=== PATIENT | female | born 1975 | race Caucasian/White ===

== ENCOUNTER 2022-08-21 13:51 | Emergency (ER) | payer MEDICAID, SELFPAY ==
[2022-08-21 13:59] VITALS: BP 148/77; PULSE 96; RESP 18; TEMP 36.1; O2SAT 99
--- NOTE | 2022-08-21 14:46 | ED.GENADULT ---
HPI - General Adult General Chief complaint: Skin/Abscess/Foreign Body Stated complaint: Rash Source: patient Mode of arrival: ambulatory Limitations: no limitations History of Present Illness HPI narrative: Patient presents for evaluation of pruritic rash to bilateral upper extremities. Symptom onset approximately 1 week ago. She was exposed to poison melissa around that time. 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 She has been applying calamine lotion. No difficulty breathing or swelling. Son is being evaluated here for similar symptoms. Related Data Home Medications Medication Instructions Recorded Confirmed albuterol sulfate 2.5 mg/3 mL 2.5 mg inhalation Q4H PRN sob 08/21/22 08/21/22 (0.083 %) solution for nebulization albuterol sulfate 90 mcg/actuation 1 puff inhalation QID PRN sob 08/21/22 08/21/22 aerosol inhaler cyanocobalamin (vitamin B-12) 50 50 mcg PO DAILY 08/21/22 08/21/22 mcg tablet (Vitamin B-12) divalproex 500 mg tablet,delayed 500 mg PO Q12H 08/21/22 08/21/22 release (Depakote) vitamin B complex (B See Rx Instructions .Route .COMPLEX 08/21/22 08/21/22 Complex-Vitamin B12 tablet) Allergies Allergy/AdvReac Type Severity Reaction Status Date / Time No Known Allergies Allergy Verified 08/21/22 14:25 Review of Systems Review of Systems: CONSTITUTIONAL: Denies fever, chills, or sweats. EYES: Denies visual changes, redness, or discharge. ENT: Denies rhinorrhea, congestion, sore throat, or otalgia. CARDIOVASCULAR: Denies chest pain, palpitations, or edema. RESPIRATORY: Denies cough or dyspnea. GASTROINTESTINAL: Denies abdominal pain, nausea, vomiting, or diarrhea. GENITOURINARY: Denies dysuria or hematuria. SKIN: Reports pruritic rash to BUE. MUSCULOSKELETAL: Denies back pain, joint pain, or myalgia. NEUROLOGIC: Denies headache, numbness, dizziness, or weakness. PSYCHIATRIC: Denies anxiety or depression. [facility] Past Medical History Medical History No pertinent past medical history Surgical History Surgical History No pertinent past surgical history Family History Family History Mother Family history non-contributory Social History Social History Substance use: never Living arrangements: with family Gender identity (if verbalized by the patient): Female Sexual Orientation (if Verbalized by the Patient): Straight or Heterosexual Spiritual care concerns: No Exam Narrative: GENERAL: Well-appearing, well-nourished, and in no acute distress. HEAD: Normocephalic, atraumatic. EYES: PERRLA and EOMI. ENT: Nares clear, no rhinorrhea or epistaxis. Mucous membranes moist. Oropharynx without tonsillar hypertrophy exudate or other lesions. Bilateral TMs pearly caruso nonbulging NECK: Supple. No adenopathy or masses. No carotid bruits or JVD CHEST: Clear to auscultation. No respiratory distress. No wheezes rales or rhonchi HEART: Regular rate and rhythm. No murmur heard. Normal peripheral pulses. ABDOMEN: Soft, nontender, nondistended, normal active bowel sounds. EXTREMITIES: Normal range of motion. No edema. SKIN: There are clusters of erythematous vesicles and linear areas of erythema to BUE NEURO: No focal deficits. Alert and oriented x3. PSYCH: Normal mood and affect. Course Course Emergency Course: This is a 47-year-old female who presented for evaluation of pruritic rash consistent with poison melissa dermatitis. Will place on prednisone taper. Benadryl for itching. Calamine lotion should help. Advise outpatient follow-up with primary provider. Go to the ER for difficulty breathing or swelling. Patient in agreement with plan of care. Level of Care: Express Care Visit Vital Signs Vital signs: Vital Signs Temp
== END 2022-08-21 14:55 | disposition home or self-care (01) ==
PROVIDERS: Emergency Provider Nurse Practitioner
DX: L23.7 Allergic contact dermatitis due to plants, except food (principal)
CPT/HCPCS: 99213; G0463

== ENCOUNTER 2022-10-03 10:57 | Emergency (ER) | payer OTHER, SELFPAY ==
[2022-10-03 11:06] VITALS: BP 149/87; PULSE 99; RESP 18; TEMP 36.6; O2SAT 99
--- NOTE | 2022-10-03 11:16 | ED.ANIMALBIT ---
HPI - Animal Bite General Chief Complaint: Animal Bite Stated Complaint: Dog Scratch Left Arm History of Present Illness HPI narrative: Patient presents with a superficial scratch to her left upper arm from her dog. Slight bruising around the area no redness no drainage no concern for infection patient has been cleansing with peroxide and apply Neosporin to the area. Related Data Home Medications Medication Instructions Recorded Confirmed albuterol sulfate 2.5 mg/3 mL 2.5 mg inhalation Q4H PRN sob 08/21/22 10/03/22 (0.083 %) solution for nebulization albuterol sulfate 90 mcg/actuation 1 puff inhalation QID PRN sob 08/21/22 10/03/22 aerosol inhaler cyanocobalamin (vitamin B-12) 50 50 mcg PO DAILY 08/21/22 10/03/22 mcg tablet (Vitamin B-12) divalproex 500 mg tablet,delayed 500 mg PO Q12H 08/21/22 10/03/22 release (Depakote) vitamin B complex (B See Rx Instructions .Route .COMPLEX 08/21/22 10/03/22 Complex-Vitamin B12 tablet) Allergies Allergy/AdvReac Type Severity Reaction Status Date / Time No Known Allergies Allergy Verified 10/03/22 11:14 Review of Systems Review of Systems: CONSTITUTIONAL: Denies fever, chills, or sweats. EYES: Denies visual changes, redness, or discharge. ENT: Denies rhinorrhea, congestion, sore throat, or otalgia. CARDIOVASCULAR: Denies chest pain, palpitations, or edema. RESPIRATORY: Denies cough or dyspnea. GASTROINTESTINAL: Denies abdominal pain, nausea, vomiting, or diarrhea. GENITOURINARY: Denies dysuria or hematuria. SKIN: Denies rash or itching. MUSCULOSKELETAL: Denies back pain, joint pain, or myalgia. NEUROLOGIC: Denies headache, numbness, or weakness. PSYCHIATRIC: Denies anxiety or depression. COUNTS INCLUDE 234 BEDS AT THE [facility] Past Medical History Medical History (Updated 10/03/22 @ 11:20 by YELITZA Karimi) No pertinent past medical history Surgical History Surgical History No pertinent past surgical history Family History Family History Mother Family history non-contributory Social History Social History Substance use: never Living arrangements: with family Gender identity (if verbalized by the patient): Female Sexual Orientation (if Verbalized by the Patient): Straight or Heterosexual Spiritual care concerns: No Comments At time of signature, agree with nursing past medical, surgical, social and family history. There is no relevant family history pertinent to the presenting complaint Exam Narrative: GENERAL: Well-appearing, well-nourished, and in no acute distress. HEAD: Normocephalic, atraumatic. EYES: PERRLA and EOMI. ENT: Nares clear, no rhinorrhea or epistaxis. Mucous membranes moist. NECK: Supple. CHEST: Clear to auscultation. No respiratory distress. HEART: Regular rate and rhythm. No murmur heard. Normal peripheral pulses. ABDOMEN: Soft, nontender, nondistended, normal active bowel sounds. EXTREMITIES: Normal range of motion. No edema. SKIN: Warm, dry, no rash. Superficial scratch to left upper arm no concern for infection scratches from a dog patient's own dog. NEURO: No focal deficits. Alert and oriented x3. Lisa Coma Scale Eye Opening: Spontaneous 4 [place] Coma Scale Motor: Obeys Commands 6 [place] Coma Scale Verbal: Oriented 5 [place] Coma Scale Total 15 Course Course Level of Care: Express Care Visit Vital Signs Vital signs: Vital Signs Temperature 36.6 C 10/03/22 11:06 Pulse Rate 99 10/03/22 11:06 Respiratory Rate 18 10/03/22 11:06 Blood Pressure 149/87 H 10/03/22 11:06 Pulse Oximetry 99 10/03/22 11:06 Oxygen Delivery Room Air 10/03/22 11:06 Temperature 36.6 C 10/03/22 11:06 Pulse Rate 99 10/03/22 11:06 Respiratory Rate 18 10/03/22 11:06 Blood Pressure 149/87 H 10/03/22 11:06 Pulse Oximetry 99 10/03/22 1
== END 2022-10-03 11:28 | disposition home or self-care (01) ==
PROVIDERS: Emergency Provider Nurse Practitioner Family
DX: S40.812A Abrasion of left upper arm, initial encounter (principal); W45.8XXA Other foreign body or object entering through skin, initial encounter
CPT/HCPCS: 99213; G0463

== ENCOUNTER 2023-04-19 14:28 | Emergency (ER) | payer OTHER, SELFPAY ==
--- NOTE | ~2023-04-19 | XR_ITS ---
EXAMINATION: XR foot RT min 3V DATE: 04/19/2023 15:45 INDICATION: Right foot injury and swelling. TECHNIQUE: 4 views of right foot were obtained. COMPARISON: None. FINDINGS: Bone alignment is normal. There is an avulsion fracture of medial base of second metatarsal at the attachment of the Lisfranc ligament. The distal fracture fragment demonstrates 2 mm lateral d isplacement. There are nondisplaced fractures of the bases of the third and fourth metatarsals. There is mild osteoarthritis of first metatarsophalangeal joint. IMPRESSION: 1. Fractures of the bases of the second-fourth metatarsals. Reviewed, dictated and finalized at location E. RINARY PHARMACOLOGIST
--- NOTE | ~2023-04-19 | XR_ITS ---
EXAMINATION: XR knee LT min 4V DATE: 04/19/2023 15:45 INDICATION: Left knee injury and pain. TECHNIQUE: 6 views of left knee were obtained. COMPARISON: None. FINDINGS: Bone alignment is normal. No fracture. Joint spaces are well maintained. There is no knee j oint effusion. IMPRESSION: 1. Normal left knee. Reviewed, dictated and finalized at location E. TRICAL FITTER IMPRESSION: 1. Normal left knee.
[2023-04-19 14:45] VITALS: BP 189/79; PULSE 98; RESP 20; TEMP 36.7; O2SAT 99
--- NOTE | 2023-04-19 15:42 | ED.LOWEXIN ---
HPI - Extremity Injury (Lower) General Chief Complaint: Extremity Injury, Lower Stated Complaint: Right foot injury Time Seen by Provider: 04/19/23 15:32 Source: patient, RN notes reviewed and old records reviewed Mode of arrival: ambulatory (using cane placed in Wheelchair) Limitations: no limitations History of Present Illness HPI Narrative: 47 year old female presents to express care with injury to her right foot when she slipped in the mud when she went to get the mail last night. Patient reports that she slipped and hurt her right foot and laceration on her anterior left knee when she fell onto street. Patient reports that she has pain to the right foot with swelling and bruising noted and decreased mobility with inability to fully bear weight on right foot. Patient voices some tenderness to left knee anteriorly with V shaped laceration to her anterior knee. MD complaint: knee injury and foot injury Onset (ago): day(s) (last night) Injury: Left: knee and Right: foot Type of Injury: other (fall) Place: street/outdoors Severity scale (1-10): 7 Exacerbating factors: weight bearing Treatments prior to arrival: cold therapy and NSAIDS Related Data Home Medications Medication Instructions Recorded Confirmed albuterol sulfate 2.5 mg/3 mL 2.5 mg inhalation Q4H PRN sob 08/21/22 04/19/23 (0.083 %) solution for nebulization albuterol sulfate 90 mcg/actuation 1 puff inhalation QID PRN sob 08/21/22 04/19/23 aerosol inhaler cyanocobalamin (vitamin B-12) 50 50 mcg PO DAILY 08/21/22 04/19/23 mcg tablet (Vitamin B-12) divalproex 500 mg tablet,delayed 500 mg PO Q12H 08/21/22 04/19/23 release (Depakote) vitamin B complex (B See Rx Instructions .Route .COMPLEX 08/21/22 04/19/23 Complex-Vitamin B12 tablet) Allergies Allergy/AdvReac Type Severity Reaction Status Date / Time No Known Allergies Allergy Verified 04/19/23 15:57 Review of Systems Review of Systems: CONSTITUTIONAL: Denies fever, chills, or sweats. EYES: Denies visual changes, redness, or discharge. ENT: Denies rhinorrhea, congestion, sore throat, or otalgia. CARDIOVASCULAR: Denies chest pain, palpitations, or edema. RESPIRATORY: Denies cough or dyspnea. GASTROINTESTINAL: Denies abdominal pain, nausea, vomiting, or diarrhea. GENITOURINARY: Denies dysuria or hematuria. SKIN: Denies rash or itching.laceration to the anterior aspect of right knee, V shaped. MUSCULOSKELETAL: Denies back pain,positive for right foot pain bruising and swelling , or myalgia. NEUROLOGIC: Denies headache, numbness, or weakness. PSYCHIATRIC: Denies anxiety or depression. All systems reviewed & are unremarkable except as noted in HPI and below PMFSH Past Medical History Medical History (Updated 04/21/23 @ 07:32 by Naomy Byrnes NP) Asthma Seizures Surgical History Surgical History No pertinent past surgical history Family History Family History Mother Family history non-contributory Social History Social History (Updated 04/21/23 @ 07:11 by Naomy Byrnes NP) Smoking packs per day: 1 Smoking cigarettes per day: 20.0 Smoking status: Current every day smoker Tobacco type: cigarettes Alcohol intake: current Alcohol use details: rare Substance use: never Living arrangements: with family Gender identity (if verbalized by the patient): Female Sexual Orientation (if Verbalized by the Patient): Straight or Heterosexual Spiritual care concerns: No Comments At time of signature, agree with nursing past medical, surgical, social and family history. There is no relevant family history pertinent to the presenting complaint Exam Narrative: GENERAL: Well-appearing, well-nourished, and in some acute distress related to pain HEAD: Normocephalic, atraumatic. EYES: PERRLA and EOMI. ENT: Nares clear, no rhinorrhea or epistaxis. Mucous mem
== END 2023-04-19 17:20 | disposition home or self-care (01) ==
PROVIDERS: Emergency Provider Registered Nurse; PCP Family Medicine
DX: S92.321A Displaced fracture of second metatarsal bone, right foot, initial encounter for closed fracture (principal); S92.334A Nondisplaced fracture of third metatarsal bone, right foot, initial encounter for closed fracture; S92.344A Nondisplaced fracture of fourth metatarsal bone, right foot, initial encounter for closed fracture; W01.0XXA Fall on same level from slipping, tripping and stumbling without subsequent striking against object, initial encounter; S81.012A Laceration without foreign body, left knee, initial encounter; F17.210 Nicotine dependence, cigarettes, uncomplicated; J45.909 Unspecified asthma, uncomplicated; G40.909 Epilepsy, unspecified, not intractable, without status epilepticus
CPT/HCPCS: 12002; 29515; 73564; 73630; 99214; G0463

== ENCOUNTER 2023-04-25 12:42 | Outpatient (CLI) | payer OTHER, SELFPAY ==
--- NOTE | ~2023-04-25 | XR_ITS ---
EXAMINATION: XR foot RT min 3V DATE: 04/25/2023 12:54 INDICATION: Metacarpal fracture follow-up TECHNIQUE: Dorsoplantar, lateral, and 2 oblique views of the right foot were obtained. COMPARISON: 04/19/2023 FINDINGS: A posterior splint has been applied which obscures the previously described metatarsal base fractures. No change in alignment is identified. The joint spaces are normal. There is mild dorsal s oft tissue swelling of the foot. IMPRESSION: 1. Unchanged metatarsal base fractures. Splint applied. Reviewed, dictated and finalized at location B. ER ROOM SUPERVISOR
== END 2023-04-25 12:43 | disposition home or self-care (01) ==
LOC: ANHBWCIMG 12:44
PROVIDERS: PCP Family Medicine; Visit Provider Orthopaedic Surgery
DX: S92.301A Fracture of unspecified metatarsal bone(s), right foot, initial encounter for closed fracture (principal); X58.XXXA Exposure to other specified factors, initial encounter
CPT/HCPCS: 73630

== ENCOUNTER 2023-05-09 12:53 | Outpatient (CLI) | payer OTHER, SELFPAY ==
--- NOTE | ~2023-05-09 | XR_ITS ---
Right foot Technique: AP, oblique, and lateral views were obtained. Clinical History: Follow-up COMPARISON: 04/25/2023 Findings: Healing fractures of the bases of second, third, fourth metatarsals are present, with stabl e osseous alignment. Joint spaces are preserved without erosive or degenerative change. Soft tissues are unremarkable. Impression: Subacute, healing fractures of the bases the second, third, and fourth metatarsals. Reviewed, dictated and finalized at location M. Impression: Subacute, healing fractures of the bases the second, third, and fourth metatars als.
== END 2023-05-09 12:54 | disposition home or self-care (01) ==
LOC: ANHBWCIMG 12:54
PROVIDERS: PCP Family Medicine; Visit Provider Orthopaedic Surgery
DX: M79.671 Pain in right foot (principal)
CPT/HCPCS: 73630

== ENCOUNTER 2023-06-20 13:02 | Outpatient (CLI) | payer OTHER, SELFPAY ==
--- NOTE | ~2023-06-20 | XR_ITS ---
EXAMINATION: XR foot RT min 3V DATE: 06/20/2023 13:15 INDICATION: Right foot pain. TECHNIQUE: 4 views of right foot were obtained. COMPARISON: Right foot radiographs 05/09/2023 FINDINGS: There is a fracture of medial base of second metatarsal at the attachment of the Lisfranc l igament. There is sclerosis of the fracture margins. The distal fracture fragment demonstrates 2 mm l ateral displacement. There are healing nondisplaced fractures of the bases of the third-fifth metatar sals. Joint spaces are normal. IMPRESSION: 1. Ununited fracture of medial base of second metatarsal. 2. Healing fractures of the bases of the third-fifth metatarsals. Reviewed, dictated and finalized at location E.
== END 2023-06-20 13:03 | disposition home or self-care (01) ==
LOC: ANHBWCIMG 13:04
PROVIDERS: PCP Family Medicine; Visit Provider Orthopaedic Surgery
DX: S92.331D Displaced fracture of third metatarsal bone, right foot, subsequent encounter for fracture with routine healing (principal); S92.341D Displaced fracture of fourth metatarsal bone, right foot, subsequent encounter for fracture with routine healing; S92.351D Displaced fracture of fifth metatarsal bone, right foot, subsequent encounter for fracture with routine healing; S92.321K Displaced fracture of second metatarsal bone, right foot, subsequent encounter for fracture with nonunion; X58.XXXD Exposure to other specified factors, subsequent encounter
CPT/HCPCS: 73630

== ENCOUNTER 2023-07-18 12:23 | Outpatient (CLI) | payer OTHER, SELFPAY ==
--- NOTE | ~2023-07-18 | XR_ITS ---
XR foot RT min 3V DATE: 07/18/2023 12:34 INDICATION: Right foot pain TECHNIQUE: Standing 4 view examination COMPARISON: June 20, 2023 right foot April 19, 2023 right foot FINDINGS: Fractures lines of the bases of the second through fourth metatarsal bones are no longer ra diographically evident. No interval fracture or dislocation. No periosteal reaction or bone destruction. IMPRESSION: Advanced healing of second through fourth metatarsal base fractures Reviewed, dictated and finalized at location B.
== END 2023-07-18 12:24 | disposition home or self-care (01) ==
LOC: ANHBWCIMG 12:24
PROVIDERS: PCP Family Medicine; Visit Provider Orthopaedic Surgery
DX: S92.321D Displaced fracture of second metatarsal bone, right foot, subsequent encounter for fracture with routine healing (principal); S92.331D Displaced fracture of third metatarsal bone, right foot, subsequent encounter for fracture with routine healing; S92.341D Displaced fracture of fourth metatarsal bone, right foot, subsequent encounter for fracture with routine healing
CPT/HCPCS: 73630